=== PATIENT | female | born 1970 | race Two or more races ===

== ENCOUNTER 2018-07-08 21:15 | Emergency (ER) | payer OTHER ==
[~2018-07-08] VITALS: Ht 154.9 cm; Wt 63.5 kg
[2018-07-08] MEDS ORDERED: NORVASC5 MG (21:37)
== END 2018-07-08 23:11 | disposition home or self-care (01) ==
LOC: ER 21:15
DX: N39.0 Urinary tract infection, site not specified (principal); N20.0 Calculus of kidney; R10.9 Unspecified abdominal pain